=== PATIENT | male | born 1960 | race Caucasian/White ===

== ENCOUNTER 2017-12-24 07:23 | Day surgery (SDC) | END 2017-12-24 16:11 | disposition home or self-care (01) ==

== ENCOUNTER 2018-02-04 14:14 | Emergency (ER) | END 2018-02-04 17:30 | disposition home or self-care (01) ==

== ENCOUNTER 2018-02-06 11:02 | Emergency (ER) | END 2018-02-06 11:49 | disposition home or self-care (01) ==